=== PATIENT | male | born 1975 | race Caucasian/White ===

== ENCOUNTER 2017-08-31 11:32 | Emergency (ER) | payer OTHER, SELFPAY ==
[2017-08-31 11:33] VITALS: BP 120/71; PULSE 89; RESP 18; TEMP 36.7; O2SAT 95; BMI 24.4
[2017-08-31 12:56] VITALS: PULSE 74; RESP 16; O2SAT 98
--- NOTE | 2017-08-31 13:08 | ED.DCSUM_ITS ---
- ER Visit Summary Date of Service: 08/31/17 Chief Complaint: Laceration History of Present Illness: The patient is a 42 M who goes to the [facility]. He reports that he got his left hand caught between sledgehammer and tired today. It avulsed tissue. He denies any possibility of a broken bone. He has sharp pain is 6 out of 10 with movement 4 out of 10 at rest. His tetanus is up- to-date. Physical Examination: Vitals: Stable. Afebrile. General: Well-nourished and well-developed. Head: Normocephalic atraumatic. Neck: Supple, no lymphadenopathy. No JVD. Nontender. Cardiovascular: Regular rate and rhythm. No murmurs. Respiratory: No respiratory distress. Clear to auscultation bilaterally. Abdominal: Soft, nontender, nondistended, normal bowel sounds. No guarding, rebound, or peritoneal signs. Back: Nontender. Extremities: Medial side of his left hand proximally shows a 1 cm x 2 cm skin avulsion with no bleeding. He also has a 1 cm x 0.5 cm skin avulsion distal to this and more posterior over the distal portion of the fifth metacarpal. There is no bleeding from this. They are minimally tender to palpation. He has no pain with axial load of his small finger. He has normal sensation light touch. Skin: Normal color, no rash. Neurologic: Alert and oriented ?3. Cranial nerves II through XII are intact. Normal strength and sensation. Psych: Normal affect. Test Results: She refused an x-ray Emergency Department Course and Treatment: He had a dressing placed. He refused pain medications. Treatment Plan: He will be discharged with instructions to keep the area clean and dry. Follow-up with [facility] in 1 week for another exam. Return to the emergency department for any signs of infection. Disposition: To home in improved and stable condition. Impression: 1. Skin avulsion left hand. This note was generated with [employer] dictation software. It may contain incorrect words, spelling, and punctuation that were not noted in review of the chart prior to signing ED Disposition - Plan for ED Patient: Disposition: Home or Assisted Living Chief Complaint: Laceration Instructions: ED Avulsion Dermal [facility]YSICIANS] - 1 Week
[2017-08-31 13:36] VITALS: BP 111/72; PULSE 78; RESP 16; O2SAT 97
== END 2017-08-31 13:37 | disposition home or self-care (01) ==
LOC: ED 13:32
PROVIDERS: Emergency Provider Emergency Medicine
DX: S61.402A Unspecified open wound of left hand, initial encounter (principal); Z72.0 Tobacco use; W23.0XXA Caught, crushed, jammed, or pinched between moving objects, initial encounter; Y93.89 Activity, other specified; Y92.89 Other specified places as the place of occurrence of the external cause; Y99.8 Other external cause status
CPT/HCPCS: 99282